=== PATIENT | male | born 1990 | race African-American/Black ===

== ENCOUNTER 2017-06-16 17:18 | Emergency (ER) | payer MEDICAID ==
[~2017-06-16] VITALS: Ht 175.3 cm; Wt 72.6 kg
[2017-06-16 17:30] VITALS: BP 125/79
--- NOTE | 2017-06-16 17:34 | Emergency Room Report ---
History of Present Illness General Chief Complaint: Upper Respiratory Illness Source: Patient (Eugene Mazariegos) Present Illness HPI 26 yo male presents to ER complaining of productive cough for the past "few days ". Patient states sputum is green. Patient denies blood in sputum. Patient in ER presenting to ER with roommate presenting with similar symptoms. Patient denies taking medications at home for relief of symptoms. Patient complains cough has made it difficult to sleep during this time, requesting cough syrup to help with symptoms. Patient denies history of asthma. Patient denies fever, chest pain, SOB, rash, voice changes, nausea, vomiting, diarrhea. (Eugene Mazariegos) Allergies: Coded Allergies: No Known Allergies (Unverified , 06/16/17) Patient History Past Medical History: see triage record Social History: Denies: smoking, alcohol use, drug use Immunizations: UTD Reviewed Nursing Documentation: PMH: Agreed, PSxH: Agreed (Eugene Mazariegos) Nursing Documentation-PMH Past Medical History: No Stated History (Eugene Mazariegos) Review of Systems All Other Systems: negative except mentioned in HPI (Eugene Mazariegos) Physical Exam Vital Signs Date Time Temp Pulse Resp B/P (MAP) Pulse Ox O2 Delivery O2 Flow Rate FiO2 06/16/17 17:24 97.7 99 18 122/78 98 Room Air Sp02 EP Interpretation: reviewed, normal General Appearance: no apparent distress, alert, GCS 15, non-toxic Head: normocephalic, atraumatic Eyes: bilateral eye normal inspection, bilateral eye PERRL ENT: hearing grossly normal, normal pharynx, no angioedema, normal voice, uvula midline, moist mucus membranes, pharyngeal erythema Neck: full range of motion, supple/symm/no masses Respiratory: chest non-tender, lungs clear, normal breath sounds, no respiratory distress, no retraction, speaking full sentences, wheezing - mild end inspiratory, other - no stridor Cardiovascular #1: regular rate, rhythm Musculoskeletal: digits/nails normal, gait/station normal, normal range of motion, non-tender Neurologic: alert, oriented x3, responsive, motor strength/tone normal, sensory intact, speech normal Psychiatric: mood/affect normal Skin: normal color, no rash, warm/dry, well hydrated Lymphatic: no adenopathy (Eugene Mazariegos) Medical Decision Making PA Attestation Dr. Bowers is my supervising physician with whom patient management has been discussed with. (Eugene Mazariegos) Diagnostic Impression: Primary Impression: Upper respiratory infection Qualified Codes: J06.9 - Acute upper respiratory infection, unspecified ER Course Pt presents to ED c/o cough and congestion. DDX considered but are not limited to influenza, viral URI, pneumonia, strep throat, rhinitis, sinusitis, otitis media. VITAL SIGNS are WNL, patient is afebrile. ORDERS: none required at this time, diagnosis is clinical. ED INTERVENTIONS: Prednisone Albuterol/Atrovent breathing treatment Following breathing treatment, patient is resting comfortably, in NAD. DISCHARGE: -Rx given for Loratadine for congestion. -Rx given for Promethazine with codiene cough syrup for cough sx. Patient advised not to drink alcohol, drive, or operate heavy machinery while taking cough syrup as this may cause drowsiness. At this time pt is stable for d/c to home. Patient no longer wheezing with breathing. Patient states they are ready to be discharged. Patient advised to take Tylenol at home for fever and pain symptoms. Patient to take medications as instructed Will provide with patient care instructions and any necessary prescriptions. Care plan and follow-up instructions provided. Patient instructed to follow-up with primary care provider in 3 - 5 days. Patient questions asked and answered. ER precautions given. Patient instructed to return to ER immediately for any new or worsening of symptoms including but not limited to increasing SOB, persistent fever. (Eugene Mazariegos.A.) Last Vital Signs Date Time Temp Pulse Resp B/P (MAP) Pulse Ox O2 Delivery O2 Flow Rate FiO2 06/16/17 17:24 97.7 99 18 122/78 98 Room Air Status: improved Reevaluation Impression Following breathing treatment, patient was resting comfortably, nontoxic appearing, in no acute distress, hemodynamically stable. Patient lungs clear to auscultation in all lung patino, no wheezing, rhonchi or rales. Patient reports feeling better and ready to be discharged home. (Eugene Mazariegos.A.) Last Vital Signs Date Time Temp Pulse Resp B/P (MAP) Pulse Ox O2 Delivery O2 Flow Rate FiO2 06/16/17 20:03 97.7 90 18 125/79 99 Room Air 21 Status: improved (Wayne Bowers M.D.) Disposition: HOME, SELF-CARE Condition: Stable Scripts Loratadine/Pseudoephedrine (CLARITIN-D 12 HOUR TABLET) 1 Each Tab.er.12h 1 TAB ORAL EVERY 12 HOURS for 7 Days, #7 TAB Prov: Eugene Mazariegos 06/16/17 Codeine/Promethazine Hcl* (PROMETHAZINE-CODEINE SYRUP*) 118 Ml Syrup 5 ML ORAL Q6H Y for For Cough, #60 ML 0 Refills Prov: Eugene Mazariegos 06/16/17 Patient Instructions: Upper Respiratory Infection, Adult Additional Instructions: Followup with primary care provider in 3 -5 days. Take medications as directed. Patient questions asked and answered. ER precautions given, patient instructed to return to ER immediately for any new or worsening of symptoms including but not limited to fever, SOB, difficulty breathing. Eugene Mazariegos Jun 16, 2017 17:34 Wayne Bowers M.D. Jun 21, 2017 09:59
[2017-06-16] MEDS ORDERED: Albuterol/Ipratropium 3ml neb HHN ONE (18:00)
[2017-06-16] MEDS ORDERED: PROMETHAZINE-C118 M1 ORAL (19:54)
[2017-06-16] MEDS ORDERED: CLARITIN-D 121 EAC1 ORAL (19:54)
[2017-06-16 20:03] VITALS: BP 125/79
== END 2017-06-16 20:03 | disposition home or self-care (01) ==
LOC: EMR 18:00
DX: J06.9 Acute upper respiratory infection, unspecified (principal)
CPT/HCPCS: 94640; 99284; J7512; J7620

== ENCOUNTER 2017-06-21 11:10 | Emergency (ER) | payer MEDICAID ==
[~2017-06-21] VITALS: Ht 175.3 cm; Wt 70.3 kg
[~2017-06-21 11:10] MED LIST: CLARITIN-D 121 EAC1 ORAL; PROMETHAZINE-C118 M1 ORAL
[2017-06-21 11:34] VITALS: BP 117/72
[2017-06-21] MEDS ORDERED: PROMETHAZINE-D118 ML ORAL (12:15)
[2017-06-21 12:28] VITALS: BP 117/72
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
== END 2017-06-21 12:29 | disposition home or self-care (01) ==
LOC: EMR 11:50
DX: Z76.0 Encounter for issue of repeat prescription (principal); J06.9 Acute upper respiratory infection, unspecified
CPT/HCPCS: 99282

== ENCOUNTER 2018-08-21 19:45 | Emergency (ER) | payer MEDICAID ==
[~2018-08-21] VITALS: Ht 175.3 cm; Wt 72.6 kg
[~2018-08-21 19:45] MED LIST changes: +PROMETHAZINE-D118 ML ORAL
--- NOTE | 2018-08-21 20:09 | NUR ---
ED Nurse Note: pt c/o flu like sx for 2 days, cough and chest pain when coughing, mucus build up, pt AA&ox4, gcs=15, skin warm and dry, resp even and unlabored on RA, LS=clear, -n/v/d, ambulates w/ steady gait, will cont monitor.
[2018-08-21 20:10] VITALS: BP 116/78
[2018-08-21] MEDS ORDERED: Albuterol ud Inhalation HHN ONE (20:30)
--- NOTE | 2018-08-21 20:38 | Emergency Room Report ---
History of Present Illness General Chief Complaint: Upper Respiratory Illness Source: Patient Present Illness HPI 27 YO male presents to the ED c/o Productive painful cough, with ST, and subjective fevers x 2 days. pt. with hx of intermittent asthma. He states he is a daily smoker both cigarettes and THC. denies recent travel, reports two ill contacts. has hx of HIV, last CD4 count is unknown but states he has never had a low/concerning count. Takes anti-viral regularly. no modifying factors. Allergies: Coded Allergies: No Known Allergies (Unverified , 06/16/17) Patient History Past Medical History: see triage record Past Surgical History: none Pertinent Family History: none Social History: Reports: smoking Immunizations: UTD Reviewed Nursing Documentation: PMH: Agreed; PSxH: Agreed Nursing Documentation-PMH Past Medical History: No Stated History Review of Systems All Other Systems: negative except mentioned in HPI Physical Exam Vital Signs Date Time Temp Pulse Resp B/P (MAP) Pulse Ox O2 Delivery O2 Flow Rate FiO2 08/21/18 19:59 98.2 96 20 116/78 98 Room Air Sp02 EP Interpretation: reviewed, normal General Appearance: no apparent distress, alert, GCS 15, non-toxic Head: normocephalic, atraumatic Eyes: bilateral eye normal inspection, bilateral eye PERRL ENT: hearing grossly normal, normal pharynx, normal voice, TMs + canals normal , nasal congestion, pharyngeal erythema Neck: full range of motion Respiratory: chest non-tender, lungs clear, normal breath sounds, no respiratory distress, speaking full sentences, wheezing Cardiovascular #1: regular rate, rhythm Musculoskeletal: gait/station normal, normal range of motion, non-tender Neurologic: alert, oriented x3, responsive, motor strength/tone normal, sensory intact, speech normal, grossly normal Psychiatric: judgement/insight normal Skin: normal color, no rash, warm/dry, well hydrated Lymphatic: no adenopathy Medical Decision Making PA Attestation Dr. Pat is my supervising Physician whom patient management has been discussed with. Diagnostic Impression: Primary Impression: Atypical pneumonia ER Course 27 YO male presents to the ED c/o Productive painful cough, with ST, and subjective fevers x 2 days. pt. with hx of intermittent asthma. He states he is a daily smoker both cigarettes and THC. denies recent travel, reports two ill contacts. has hx of HIV, last CD4 count is unknown but states he has never had a low/concerning count. Takes anti-viral regularly. no modifying factors. Ddx considered but are not limited to URI, pneumonia, PE, strep pharyngitis, meningitis. Vital signs: Pt.is afebrile VS are WNL H&PE are most consistent with atypical PNA, -- productive cough with fevers in an immunocompromised pt. ORDERS: none required at this time, the diagnosis is clinical ED INTERVENTIONS: -Albuterol HHN DISCHARGE: At this time pt. is stable for d/c to home. Will provide printed patient care instructions, and any necessary prescriptions. Care plan and follow up instructions have been discussed with the patient prior to discharge. Last Vital Signs Date Time Temp Pulse Resp B/P (MAP) Pulse Ox O2 Delivery O2 Flow Rate FiO2 08/21/18 20:10 98.2 96 16 116/78 98 Room Air Status: improved Disposition: HOME, SELF-CARE Condition: Stable Scripts Azithromycin* (ZITHROMAX*) 250 Mg Tablet 250 MG ORAL DAILY, #6 TAB 0 Refills Take two tables once daily for 1 day, then one tablet once daily for 4 days. Prov: Aied Sifuentes 08/21/18 Guaifenesin (Guaifenesin) 1,200 Mg Tab.er.12h 1200 MG PO Q12HR for 10 Days, #20 TAB Prov: Aide Sifuentes 08/21/18 Codeine/Promethazine Hcl* (PROMETHAZINE-CODEINE SYRUP*) 118 Ml Syrup 5 ML ORAL Q6H PRN for For Cough, #120 ML 0 Refills Prov: Aide Sifuentes 08/21/18 Patient Instructions: Upper Respiratory Infection, Adult Additional Instructions: Take medications as directed. Follow up with a Primary Care Provider in 3-5 days, even if your symptoms have resolved. --Please review list of primary care clinics, if you do not already have a primary care provider Return sooner to ED if new symptoms occur, or current symptoms become worse. Do not drink alcohol, drive, or operate heavy machinery while taking Cough Syrup as this may cause drowsiness. - Please note that this Emergency Department Report was dictated using [employer] technology software, occasionally this can lead to erroneous entry secondary to interpretation by the dictation equipment. Aide Sifuentes Aug 21, 2018 20:38
[2018-08-21] MEDS ORDERED: PROMETHAZINE-C118 M1 ORAL (21:03)
[2018-08-21] MEDS ORDERED: GUAIFENESIN1200 MG PO (21:03)
[2018-08-21] MEDS ORDERED: ZITHROMAX250 MG ORAL (21:13)
[2018-08-21 21:20] VITALS: BP 113/60
--- NOTE | 2018-08-21 21:20 | NUR ---
ED Nurse Note: pt cleared to be d/c per ERMD, pt discharge and aftercare instruction provided w/ prescription, pt education done via discussion and handout, pt advised to follow up with pcp or return to ed if sx worsen or new sx develop, pt verbalized understanding and agrees with plan, vss, ambulatory w/ steady gait, left w/ all belongings, wristband removed.
== END 2018-08-21 21:20 | disposition home or self-care (01) ==
LOC: EMR 20:10
DX: J18.9 Pneumonia, unspecified organism (principal)
CPT/HCPCS: 94640; 94664; 99284